=== PATIENT | male | born 1955 | race Caucasian/White ===

== ENCOUNTER → 2018-07-04 06:55 | Outpatient (CLI) | payer MEDICARE, OTHER, SELFPAY ==
--- NOTE | 2018-07-03 | LES_PTH ---
PATIENT: LIBORIO ISABEL LOC: [facility] U#:[id number] AGE/SX: 70/M ROOM: RE07/04/[address]: MINERVA Rico : 1955 BED: DIS: SPEC #: [id number] RECD: 07/04/18 22:11 STATUS: DEJON PEREZ #: [id number] BENNY: 07/03/18 00:[address]: Neha Barnhart NP DEPT: SURGICAL PATHOLOGY RECD BY: Polo Sanchez Tissues: A - Skin of head and neck, NOS B - Skin of leg, NOS C - Skin of leg, NOS Procedures: Surgery Specimen Level IV HEADER OPERATION: Punch biopsy / shave biopsy PRE-OP DIAGNOSIS: Skin lesion L98.9 TISSUE SUBMITTED: A ? Punch biopsy right lateral head, B ? Shave biopsy top of head, C1 ? Shave biopsy left lower calf, C2 ? Shave biopsy left lower calf MICROSCOPIC DIAGNOSIS A. Skin lesion, right lateral head, punch biopsy: Benign keratosis, inflamed. Solar elastosis. B. Skin lesion, top of head, shave biopsy: Actinic keratosis. Solar elastosis. C. Skin lesion #1 of left calf, shave biopsy: Consistent with verruca vulgaris. Skin lesion#2 of left lower calf, shave biopsy: Superficial fragments of verrucoid keratosis. AM:baylee 07/08/18 COMMENT This case was discussed with Neha Barnhart on 07/08/18 Case has been reviewed in consultation with Dr. Rivera who concurs with the above diagnosis. IDC:SJ MICROSCOPIC DESCRIPTION Slides are reviewed. GROSS DESCRIPTION A & B - Specimen A & B are present in one container. Specimen A is identified as ?punch biopsy right lateral head? and specimen B is identified as ?shave biopsy top of head. Received in one container is a piece of punch biopsy of driscoll-white skin measuring 0.3 cm in length and 0.3 cm in diameter and submitted in cassette labeled A1. The second specimen consists of a shaved biopsy of driscoll-brown skin measuring 0.5 x 0.3 cm and 0.1 cm in thickness. This is submitted in one casette labeled 2. It will be inked and submitted entirely in one cassette labeled B1. It will be bisected at the time of embedding. C - Received in fixative is one container labeled with the patient's name and designated left leg. The specimen consists of a shaved biopsy of four pieces of driscoll-white skin. The largest piece measures 1 cm in length and 0.7 cm in diameter. It is inked and submitted entirely in one cassette labeled as C1. It will be sectioned at the time of embedding. The second piece consists of three pieces of driscoll-white tissue measuring in aggregate 1 x 0.8 x 0.1 cm. The largest piece is inked black. It will be bisected at the time of embedding. The three smaller pieces are submitted in cassette C2. The largest piece will be bisected at the time of embedding. / SJ:rg 07/05/18 TC:5 CPT: 50468 x4
== END ==
PROVIDERS: Visit Provider Nurse Practitioner
DX: L57.0 Actinic keratosis (principal); L57.8 Other skin changes due to chronic exposure to nonionizing radiation; L82.0 Inflamed seborrheic keratosis
CPT/HCPCS: 88305